=== PATIENT | male | born 1985 | race American Indian/Alaskan Native ===

== ENCOUNTER 2021-10-08 06:45 | Emergency (ER) | payer MEDICAID ==
[~2021-10-08] VITALS: Ht 165.1 cm; Wt 63.6 kg
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
[2021-10-08] MEDS ORDERED: LIDOcaine 1% W/epiNEPHrine 1:100,000 20ml vial SQ ONE ×2 (07:25→09:50)
[2021-10-08] MEDS ORDERED: iohexol 300mg/ml 100ml inj. ONE (07:38)
[2021-10-08 08:56] VITALS: BP 116/73
--- NOTE | 2021-10-08 09:00 | NUR ---
SO AT BEDSIDE
[2021-10-08] MEDS ORDERED: HYDROcodone/acetaminophen 10/325mg tab PO ONE (10:25)
[2021-10-08] MEDS ORDERED: TETanus/Pertussis (Acell)/Diphther VAC/PF (Tdap-Adult) 0.5ml syringe IMVAC ONE (10:25)
[2021-10-08] MEDS ORDERED: HYDR-3972 PO (10:31)
== END 2021-10-08 11:09 | disposition home or self-care (01) ==
LOC: ER 06:46
DX: S51.822A Laceration with foreign body of left forearm, initial encounter (principal); S31.119A Laceration without foreign body of abdominal wall, unspecified quadrant without penetration into peritoneal cavity, initial encounter; F17.210 Nicotine dependence, cigarettes, uncomplicated; Z88.8 Allergy status to other drugs, medicaments and biological substances; Z59.00 Homelessness unspecified; Z79.899 Other long term (current) drug therapy; Y04.0XXA Assault by unarmed brawl or fight, initial encounter; Y93.89 Activity, other specified; Y92.89 Other specified places as the place of occurrence of the external cause; Y99.8 Other external cause status
CPT/HCPCS: 12002; 74177; 90471; 90715; 99285; J3490; J7030; Q9967; A6258; A6446; A6449